=== PATIENT | female | born 1970 | race Caucasian/White ===

== ENCOUNTER 2017-02-20 14:32 | Observation (INO) | payer SELFPAY ==
[2017-02-20] VITALS (8 sets, daily range): BP systolic 100–117; BP diastolic 56–74; PULSE 57–77; RESP 16–20; TEMP 97.8–99.5; O2SAT 95–99
[~2017-02-20] VITALS: Ht 160 cm; Wt 75.0 kg
[~2017-02-20 14:32] MED LIST: ACID75TA6 PO; LISI-363 PO; MELA1TAB PO; PROT40TA PO; ZOFR4TAB3 SL; ZOVI200C24 PO
[2017-02-20] MEDS ORDERED: SODIUM CHLORIDE 0.9% FLUSH 10 ML FLUSH IVF PRN (15:00)
[2017-02-20] MEDS ORDERED: ONDANSETRON HCL 4 MG/2 ML VIAL IVP ONE (15:00)
[2017-02-20] MEDS ORDERED: SODIUM CHLOR 0.9% 1000 ML INJ 1,000 ML IV ONE (15:00)
[2017-02-20] MEDS ORDERED: ACYC400T PO (15:02)
[2017-02-20] MEDS ORDERED: VIST50CA PO (15:02)
[2017-02-20] MEDS ORDERED: OMEP20TA PO (15:02)
[2017-02-20] MEDS ORDERED: HYDR12.57 PO (15:02)
[2017-02-20] MEDS ORDERED: ATEN25TA PO (15:02)
[2017-02-20] MEDS ORDERED: TRAZ50TA12 PO (15:02)
[2017-02-20] MEDS ORDERED: ABIL15TA2 PO (15:02)
[2017-02-20] MEDS ORDERED: LAMO100 PO (15:02)
--- NOTE | 2017-02-20 15:09 | PD ---
HPI Chief Complaint: Syncope/Near-Syncope Time Seen by Provider: 14:52 Travel History International Travel<30 days: No Contact w/Intl Traveler<30days: No Traveled to known affect area: No History of Present Illness HPI Patient is 47 her old female with history of htn, bipolar disorder, PTSD, presents to ER after she had a syncopal episode. Patient went to get a parking pass today and reports that the next thing she remembers is waking up on the floor. Reports that bystanders had told her that she had "passed out." Patient reports that she has been feeling lightheaded and dizzy. Reports that prior to her syncopal episode, she felt diaphoretic, hot, nauseous with no vomiting. Patient with only complaint of dizzyness at this time. Denies chest pain/sob. Patient reports that she currently is not on any anticoagulants. Denies history of syncope in the past. Denies any fevers or chills. PFSH Past Medical History Asthma: Yes Bipolar Disorder: Yes Gastrointestinal Disorders: Yes (CHRONIC OVERGROWTH OF SMALL INTESTINE BACTERIA ) GERD: No ("REFLUX") Hypertension: Yes Past Surgical History Ear Surgery: Yes (EUSTATION TUBES) Genitourinary Surgery: Yes (MULTIPLE ENDOSCOPIES AND COLONOSCOPIES) Tonsillectomy: Yes (WITH ADNIODS) Social History Alcohol Use: Yes (OCCASIONALLY) Tobacco Use: No Substance Use: No Allergies-Medications (Allergen,Severity, Reaction): Coded Allergies: clarithromycin (Verified Allergy, Severe, hives, 02/20/17) hydrocodone (Verified Allergy, Severe, hives, 02/20/17) oxycodone (Verified Allergy, Severe, hives, 02/20/17) Reported Meds & Prescriptions Reported Meds & Active Scripts Active Reported Trazodone (Trazodone HCl) 50 Mg Tab 50 Mg PO HS Acyclovir 400 Mg Tab 200 Mg PO BID Atenolol 25 Mg Tab 25 Mg PO DAILY Hydrochlorothiazide 12.5 Mg Cap 12.5 Mg PO DAILY Omeprazole 20 Mg Tab 20 Mg PO DAILY Lamictal (Lamotrigine) 100 Mg Tab 100 Mg PO BID Vistaril (Hydroxyzine Pamoate) 50 Mg Cap 50 Mg PO TID Abilify (Aripiprazole) 15 Mg Tab 15 Mg PO DAILY Review of Systems General / Constitutional: No: Fever Eyes: No: Visual changes HENT: Positive: Lightheadedness, No: Headaches Cardiovascular: Positive: Diaphoresis, No: Chest Pain or Discomfort Respiratory: No: Shortness of Breath Gastrointestinal: Positive: Nausea, No: Vomiting, Abdominal Pain Genitourinary: No: Dysuria Musculoskeletal: No: Pain Skin: No Rash Neurologic: Positive: Dizziness, Syncope, No: Weakness Psychiatric: No: Depression Endocrine: No: Polydipsia Hematologic/Lymphatic: No: Easy Bruising Physical Exam Narrative GENERAL: Mild distress SKIN: Focused skin assessment warm/dry. HEAD: Atraumatic. Normocephalic. EYES: Pupils equal and round. No scleral icterus. No injection or drainage. ENT: No nasal bleeding or discharge. Mucous membranes pink and dry. NECK: Trachea midline. No JVD. CARDIOVASCULAR: Regular rate and rhythm. No murmur appreciated. RESPIRATORY: No accessory muscle use. Clear to auscultation. Breath sounds equal bilaterally. GASTROINTESTINAL: Abdomen soft, non-tender, nondistended. Hepatic and splenic margins not palpable. MUSCULOSKELETAL: No obvious deformities. No clubbing. No cyanosis. No edema. NEUROLOGICAL: Awake and alert. No obvious cranial nerve deficits. Motor grossly within normal limits. Normal speech. CN 2-12 grossly intact with no neurovascular compromise PSYCHIATRIC: Appropriate mood and affect; insight and judgment normal. Data Data Last Documented VS Vital Signs Date Time Temp Pulse Resp B/P (MAP) Pulse Ox O2 Delivery O2 Flow Rate FiO2 02/20/17 16:47 97.9 64 16 104/67 (79) 99 Room Air Orders Orders Electrocardiogram (02/20/17 15:00) Ed Urine Pregnancytest Poc (02/20/17 15:00) Complete Blood Count With Diff (02/20/17 15:00) Comprehensive Metabolic Panel (02/20/17 15:00) Magnesium (Mg) (02/20/17 15:00) B-Type Natriuretic Peptide (02/20/17 15:00) Ckmb (Isoenzyme) Profile (02/20/17 15:00) Troponin I (02/20/17 15:00) Act Partial Throm Time (Ptt) (02/20/17 15:00) Prothrombin Time / Inr (Pt) (02/20/17 15:00) Urinalysis - C+S If Indicated (02/20/17 15:00) Chest, Single Ap (02/20/17 15:00) Ct Brain W/O Iv Contrast(Rout) (02/20/17 15:00) Blood Glucose (02/20/17 15:00) Ecg Monitoring (02/20/17 15:00) Iv Access Insert/Monitor (02/20/17 15:00) Oximetry (02/20/17 15:00) Ondansetron Inj (Zofran Inj) (02/20/17 15:00) Sodium Chloride 0.9% Flush (Ns Flush) (02/20/17 15:00) Sodium Chlor 0.9% 1000 Ml Inj (Ns 1000 M (02/20/17 15:00) Orthostatic Vital Signs (02/20/17 15:09) Drug Screen, Random Urine (02/20/17 15:09) Potassium Chloride (Kcl) (02/20/17 16:45) Aspirin (Aspirin) (02/20/17 16:45) Admit Order (Ed Use Only) (02/20/17 16:49) Labs Laboratory Tests Test 02/20/17 15:00 White Blood Count 9.0 TH/MM3 Red Blood Count 4.06 MIL/MM3 Hemoglobin 12.4 GM/DL Hematocrit 36.5 % Mean Corpuscular Volume 89.8 FL Mean Corpuscular Hemoglobin 30.6 PG Mean Corpuscular Hemoglobin Concent 34.1 % Red Cell Distribution Width 14.0 % Platelet Count 288 TH/MM3 Mean Platelet Volume 7.4 FL Neutrophils (%) (Auto) 76.9 % Lymphocytes (%) (Auto) 17.4 % Monocytes (%) (Auto) 4.5 % Eosinophils (%) (Auto) 0.8 % Basophils (%) (Auto) 0.4 % Neutrophils # (Auto) 6.9 TH/MM3 Lymphocytes # (Auto) 1.6 TH/MM3 Monocytes # (Auto) 0.4 TH/MM3 Eosinophils # (Auto) 0.1 TH/MM3 Basophils # (Auto) 0.0 TH/MM3 CBC Comment DIFF FINAL Differential Comment Prothrombin Time 10.0 SEC Prothromb Time International Ratio 0.9 RATIO Activated Partial Thromboplast Time 23.3 SEC Urine Color YELLOW Urine Turbidity CLEAR Urine pH 6.5 Urine Specific [place] 1.024 Urine Protein NEG mg/dL Urine Glucose (UA) NEG mg/dL Urine Ketones NEG mg/dL Urine Occult Blood TRACE Urine Nitrite NEG Urine Bilirubin NEG Urine Urobilinogen 2.0 MG/DL Urine Leukocyte Esterase NEG Urine RBC 4 /hpf Urine WBC 1 /hpf Urine Squamous Epithelial Cells 5 /hpf Urine Bacteria RARE /hpf Urine Mucus FEW /lpf Microscopic Urinalysis Comment CULT NOT INDICATED Blood Urea Nitrogen 21 MG/DL Creatinine 0.96 MG/DL Random Glucose 98 MG/DL Total Protein 6.4 GM/DL Albumin 3.2 GM/DL Calcium Level 8.4 MG/DL Magnesium Level 2.0 MG/DL Alkaline Phosphatase 52 U/L Aspartate Amino Transf (AST/SGOT) 9 U/L Alanine Aminotransferase (ALT/SGPT) 15 U/L Total Bilirubin 0.2 MG/DL Sodium Level 136 MEQ/L Potassium Level 3.2 MEQ/L Chloride Level 100 MEQ/L Carbon Dioxide Level 30.4 MEQ/L Anion Gap 6 MEQ/L Estimat Glomerular Filtration Rate 63 ML/MIN Total Creatine Kinase 79 U/L Troponin I LESS THAN 0.02 NG/ML MDM Medical Decision Making Medical Screen Exam Complete: Yes Emergency Medical Condition: Yes Medical Record Reviewed: Yes Interpretation(s) EKG at 1521: NSR at 65bpm, qt/qtc: 418/430, no acute st or t wave changes Vital Signs Date Time Temp Pulse Resp B/P (MAP) Pulse Ox O2 Delivery O2 Flow Rate FiO2 02/20/17 14:57 81 18 98 Room Air 02/20/17 14:52 98.1 77 16 110/69 (83) 96 Differential Diagnosis acs, arrhythmia, electrolyte abnormality, ich, orthostatic hypotension, vbi Narrative Course 47-year-old female who presents to emergency room for evaluation of syncopal episode today. Syncopal episode occurred while she was trying to get a parking pass at her apartment complex today. Patient reports that prior to her syncopal episode, she felt lightheaded dizzy, diaphoretic and nauseous. Patient at this time only complains of dizziness. Patient was placed on a cart monitor upon arrival to emergency room. Bedside BS ordered. EKG ordered. CT head, cbc, bmp, ce ordered. Plan to administer IVF as patient does appear dehydrated. Vital Signs Date Time Temp Pulse Resp B/P (MAP) Pulse Ox O2 Delivery O2 Flow Rate FiO2 02/20/17 15:13 78 17 117/73 (88) 80 17 116/71 (86) 76 17 110/74 (86) 02/20/17 15:04 17 98 Room Air 02/20/17 14:57 81 18 98 Room Air 02/20/17 14:52 98.1 77 16 110/69 (83) 96 Laboratory Tests Test 02/20/17 15:00 White Blood Count 9.0 TH/MM3 (4.0-11.0) Red Blood Count 4.06 MIL/MM3 (4.00-5.30) Hemoglobin 12.4 GM/DL (11.6-15.3) Hematocrit 36.5 % (35.0-46.0) Mean Corpuscular Volume 89.8 FL (80.0-100.0) Mean Corpuscular Hemoglobin 30.6 PG (27.0-34.0) Mean Corpuscular Hemoglobin Concent 34.1 % (32.0-36.0) Red Cell Distribution Width 14.0 % (11.6-17.2) Platelet Count 288 TH/MM3 (150-450) Mean Platelet Volume 7.4 FL (7.0-11.0) Neutrophils (%) (Auto) 76.9 % (16.0-70.0) Lymphocytes (%) (Auto) 17.4 % (9.0-44.0) Monocytes (%) (Auto) 4.5 % (0.0-8.0) Eosinophils (%) (Auto) 0.8 % (0.0-4.0) Basophils (%) (Auto) 0.4 % (0.0-2.0) Neutrophils # (Auto) 6.9 TH/MM3 (1.8-7.7) Lymphocytes # (Auto) 1.6 TH/MM3 (1.0-4.8) Monocytes # (Auto) 0.4 TH/MM3 (0-0.9) Eosinophils # (Auto) 0.1 TH/MM3 (0-0.4) Basophils # (Auto) 0.0 TH/MM3 (0-0.2) CBC Comment DIFF FINAL Differential Comment Prothrombin Time 10.0 SEC (9.8-11.6) Prothromb Time International Ratio 0.9 RATIO Activated Partial Thromboplast Time 23.3 SEC (24.3-30.1) Urine Color YELLOW (YELLW/STRAW) Urine Turbidity CLEAR (CLEAR) Urine pH 6.5 (5.0-8.5) Urine Specific [place] 1.024 (1.002-1.035) Urine Protein NEG mg/dL (NEG-TRACE) Urine Glucose (UA) NEG mg/dL (NEG) Urine Ketones NEG mg/dL (NEG) Urine Occult Blood TRACE (NEG) Urine Nitrite NEG (NEG) Urine Bilirubin NEG (NEG) Urine Urobilinogen 2.0 MG/DL (LESS THAN Urine Leukocyte Esterase NEG (NEG) Urine RBC 4 /hpf (0-3) Urine WBC 1 /hpf (0-5) Urine Squamous Epithelial Cells 5 /hpf (0-5) Urine Bacteria RARE /hpf (NONE) Urine Mucus FEW /lpf (OCC) Microscopic Urinalysis Comment CULT NOT INDICATED Blood Urea Nitrogen 21 MG/DL (7-18) Creatinine 0.96 MG/DL (0.50-1.00) Random Glucose 98 MG/DL (74-106) Total Protein 6.4 GM/DL (6.4-8.2) Albumin 3.2 GM/DL (3.4-5.0) Calcium Level 8.4 MG/DL (8.5-10.1) Magnesium Level 2.0 MG/DL (1.5-2.5) Alkaline Phosphatase 52 U/L (45-117) Aspartate Amino Transf (AST/SGOT) 9 U/L (15-37) Alanine Aminotransferase (ALT/SGPT) 15 U/L (10-53) Total Bilirubin 0.2 MG/DL (0.2-1.0) Sodium Level 136 MEQ/L (136-145) Potassium Level 3.2 MEQ/L (3.5-5.1) Chloride Level 100 MEQ/L (98-107) Carbon Dioxide Level 30.4 MEQ/L (21.0-32.0) Anion Gap 6 MEQ/L (5-15) Estimat Glomerular Filtration Rate 63 ML/MIN (>89) Total Creatine Kinase 79 U/L (26-192) Troponin I LESS THAN 0.02 NG/ML Last Impressions Head CT 02/20/17 1500 Signed Impressions: Service Date/Time: February 15:52 - CONCLUSION: No acute intracranial abnormality is identified. Lenny Wolff MD Chest X-Ray 02/20/17 1500 Signed Impressions: Service Date/Time: February 15:26 - CONCLUSION: No acute cardiopulmonary abnormality is identified. Lenny Wolff MD Patient re-evaluated, patient feeling better, reviewed all labs and studies with patient in detail. Plan to obs in the hospital for syncope workup case reviewed with dr. licona who accepts pt to service Diagnosis Primary Impression: Syncope and collapse Additional Impression: Hypokalemia Admitting Information Admitting Physician Requests: Observation Ligia Mendiola DO Feb 20, 2017 15:09
[2017-02-20 15:38] LABS: AUTOMATED NEUTROPHIL # 6.9 TH/MM3 (1.8-7.7); BASOPHIL % 0.4 % (0.0-2.0); EOSINOPHIL # 0.1 TH/MM3 (0-0.4); EOSINOPHIL % 0.8 % (0.0-4.0); HEMATOCRIT 36.5 % (35.0-46.0); HEMO FLAGS DIFF FINAL; LYMPH % 17.4 % (9.0-44.0); LYMPHOCYTE # 1.6 TH/MM3 (1.0-4.8); MEAN CELL VOLUME 89.8 FL (80.0-100.0); MEAN CORPUSCULAR HEMOGLOBIN 30.6 PG (27.0-34.0); MEAN CORPUSCULAR HGB CONC 34.1 % (32.0-36.0); MONO % 4.5 % (0.0-8.0); NEUT % 76.9 % (16.0-70.0); PLATELET COUNT 288 TH/MM3 (150-450); RED BLOOD COUNT 4.06 MIL/MM3 (4.00-5.30)
--- NOTE | 2017-02-20 15:45 | RADRPT ---
EXAM DATE/TIME: 02/20/2017 15:26 [facility] COMPARISON: No previous studies available for comparison. INDICATIONS : Dizziness, shortness of breath, light headed, nausea, and blacked out earlier today. MEDICAL HISTORY : None. SURGICAL HISTORY : None. ENCOUNTER: Initial ACUITY: 1 day PAIN SCORE: 0/10 LOCATION: Bilateral chest FINDINGS: Portable AP view of the chest demonstrates a normal-sized cardiac silhouette. No effusion, consolidat ion, or pneumothorax is visualized. The bones and soft tissues demonstrate no acute abnormality. CONCLUSION: No acute cardiopulmonary abnormality is identified. Lenny Wolff MD on February 20, 2017 at 15:43 Board Certified Radiologist. This report was verified electronically.
[2017-02-20 15:47] LABS: BACTERIA, URINE RARE /hpf; BLOOD, URINE TRACE (NEG); COMMENT (UR) CULT NOT INDICATED; CULTURE IF INDICATED CULT NOT INDICATED; GLUCOSE,URINE NEG (NEG); KETONE, URINE NEG (NEG); MUCUS URINE FEW /lpf (OCC); NITRITE,URINE NEG (NEG); PH, URINE 6.5 (5.0-8.5); SQUAMOUS EPITHELIAL CELL URINE 5 /hpf (0-5); URINE COLOR YELLOW (YELLW/STRAW)
[2017-02-20 15:52] LABS: APTT (PATIENT) 23.3 SEC (24.3-30.1); INTERNATIONAL NORMALIZED RATIO 0.9 RATIO
--- NOTE | 2017-02-20 16:04 | RADRPT ---
EXAM DATE/TIME: 02/20/2017 15:52 [facility] COMPARISON: No previous studies available for comparison. INDICATIONS : Head pain due to fall, syncope. RADIATION DOSE: 32.02 CTDIvol (mGy) MEDICAL HISTORY : Hypertension. Asthma, Bipolar. SURGICAL HISTORY : None. ENCOUNTER: Initial ACUITY: 1 day PAIN SCALE: 2/10 LOCATION: Bilateral cranial TECHNIQUE: Multiple contiguous axial images were obtained of the head. Using automated exposure control and adj ustment of the mA and/or kV according to patient size, radiation dose was kept as low as reasonably a chievable to obtain optimal diagnostic quality images. DICOM format image data is available electro nically for review and comparison. FINDINGS: CEREBRUM: The ventricles are normal. No evidence of midline shift, mass lesion, hemorrhage or acute infarction . No extra-axial fluid collections are seen. POSTERIOR FOSSA: The cerebellum and brainstem are intact. The 4th ventricle is midline. The cerebellopontine angle i s unremarkable. EXTRACRANIAL: There is minimal mucoperiosteal thickening in the sphenoid sinus. SKULL: The calvaria is intact. No evidence of skull fracture. CONCLUSION: No acute intracranial abnormality is identified. Lenny Wolff MD on February 20, 2017 at 16:01 Board Certified Radiologist. This report was verified electronically.
[2017-02-20 16:06] LABS: ALT (GPT) 15 U/L (10-53); ANION GAP 6 MEQ/L (5-15); AST (GOT) 9 U/L (15-37); BICARBONATE 30.4 MEQ/L (21.0-32.0); BLOOD UREA NITROGEN 21 MG/DL (7-18); CHLORIDE 100 MEQ/L (98-107); GLOMERULAR FILTRATION RATE 63 ML/MIN (>89); POTASSIUM 3.2 MEQ/L (3.5-5.1); SODIUM (NA) 136 MEQ/L (136-145)
[2017-02-20 16:11] LABS: ALKALINE PHOSPHATASE 52 U/L (45-117); TOTAL BILIRUBIN ADULT 0.2 MG/DL (0.2-1.0)
[2017-02-20 16:27] LABS: CREATINE KINASE 79 U/L (26-192)
[2017-02-20] MEDS ORDERED: POTASSIUM CHLORIDE 10 MEQ CONTROLLED RELEASE TAB PO ONE (16:45)
[2017-02-20] MEDS ORDERED: ASPIRIN 325 MG TAB PO ONE (16:45)
[2017-02-20] MEDS ORDERED: NALOXONE HCL 0.4 MG/ML AMP IV PUSH PRN (17:00)
[2017-02-20] MEDS ORDERED: MAGNESIUM HYDROXIDE SUSP 30 ML CUP PO PRN (17:00)
[2017-02-20] MEDS ORDERED: ACETAMINOPHEN 325 MG TAB PO PRN ×2 (17:00)
[2017-02-20] MEDS ORDERED: SODIUM CHLORIDE 0.9% FLUSH 10 ML FLUSH IV FLUSH PRN (17:00)
[2017-02-20] MEDS ORDERED: ACETAMINOPHEN/HYDROcodone 325 MG/5 MG TAB PO PRN (17:00)
[2017-02-20] MEDS ORDERED: ONDANSETRON HCL 4 MG/2 ML VIAL IVP PRN (17:00)
--- NOTE | 2017-02-20 17:22 | HHI.HP ---
HPI [facility] Primary Care Physician No Primary Care Physician Admission Diagnosis [place]pe Diagnoses: Chief Complaint: syncope Travel History International Travel<30 Days: No Contact w/Intl Traveler <30 Da: No Traveled to Known Affected Are: No History of Present Illness Written by Neris Erazo, acting as scribe for Dr. Lazo on 02/20/17 at 17:22. Patient is pleasant 47 her old female with history of HTN, bipolar disorder, PTSD, asthma and herpes simplex 1 & 2 who presents to ER after she had a syncopal episode. Patient went to get a parking pass today and reports that the next thing she remembers is waking up on the floor. Prior to the syncopal episode patient recalls feeling hot, diaphoretic, hot, nauseous with no vomiting. Reports that bystanders had told her that she had "passed out." Patient lost consciousness for an unknown period of time, Patient is unaware if she hit her head or not. Patient denies headache or visual changes. There was no loss of bowel or bladder control and tongue biting. Patient reports that she has been feeling lightheaded and dizzy since starting Abilify 3 days ago. Patient was started on Vistoril about 2 weeks ago and then started Abilify 3 days ago in addition to her regular Trazodone and Lamictal. Patient reports she is feeling much better at this time. She is no longer dizzy or lightheaded. Patient denies chest pain, SOB, diarrhea constipation fevers or chills. Review of Systems Except as stated in HPI: all other systems reviewed are Neg Past Family Social History Past Medical History HTN, bipolar disorder, PTSD, asthma, herpes simplex type I and 2 Past Surgical History Eustachian tubes placed, EGD and colonoscopies, tonsils and adenoids removed, LEEP procedure Reported Medications Trazodone (Trazodone HCl) 50 Mg Tab 50 Mg PO HS Acyclovir 400 Mg Tab 200 Mg PO BID Atenolol 25 Mg Tab 25 Mg PO DAILY Hydrochlorothiazide 12.5 Mg Cap 12.5 Mg PO DAILY Omeprazole 20 Mg Tab 20 Mg PO DAILY Lamictal (Lamotrigine) 100 Mg Tab 100 Mg PO BID Vistaril (Hydroxyzine Pamoate) 50 Mg Cap 50 Mg PO TID Abilify (Aripiprazole) 15 Mg Tab 15 Mg PO DAILY Allergies: Coded Allergies: clarithromycin (Verified Allergy, Severe, hives, 02/20/17) hydrocodone (Verified Allergy, Severe, hives, 02/20/17) oxycodone (Verified Allergy, Severe, hives, 02/20/17) Active Ordered Medications Current Medications Medications (Trade) Dose Ordered Sig/Karla Route Start Time Stop Time Status Last Admin (NS Flush) 2 ml UNSCH PRN IVF 02/20/17 15:00 02/20/17 15:12 (Zovirax) 200 mg BID PO 02/20/17 21:00 UNV (Abilify) 15 mg DAILY PO 02/21/17 09:00 UNV (Tenormin) 25 mg DAILY PO 02/21/17 09:00 UNV (Microzide) 12.5 mg DAILY PO 02/21/17 09:00 UNV (Vistaril) 50 mg TID PO 02/20/17 18:00 UNV (LaMICtal) 100 mg BID PO 02/20/17 21:00 UNV (Desyrel) 50 mg HS PO 02/20/17 21:00 UNV Non-Formulary Medication 20 mg DAILY PO 02/21/17 09:00 UNV (NS Flush) 2 ml UNSCH PRN IV FLUSH 02/20/17 17:00 UNV (NS Flush) 2 ml BID IV FLUSH 02/20/17 21:00 UNV (Tylenol) 650 mg Q4H PRN PO 02/20/17 17:00 UNV (Zofran Inj) 4 mg Q6H PRN IVP 02/20/17 17:00 UNV (Tylenol) 650 mg Q6H PRN PO 02/20/17 17:00 UNV (Devers 5-325 Mg) 1 tab Q4H PRN PO 02/20/17 17:00 UNV (Narcan Inj) 0.4 mg UNSCH PRN IV PUSH 02/20/17 17:00 UNV (Milk Of Magnesia Liq) 30 ml Q12H PRN PO 02/20/17 17:00 UNV (Ativan Inj) 4 mg Q4H PRN IV PUSH 02/20/17 17:45 UNV Family History Mother 60 secondary to RI Father at 62 secondary to squamous cell carcinoma Social History Alcohol Use: OCCASIONALLY Tobacco Use: 1 PPD for 30 year, now has cut down to 1/2 PPD Substance Use: Denies Physical Exam Vital Signs Vital Signs Date Time Temp Pulse Resp B/P (MAP) Pulse Ox O2 Delivery O2 Flow Rate FiO2 02/20/17 16:47 97.9 64 16 104/67 (79) 99 Room Air 02/20/17 15:13 78 17 117/73 (88) 80 17 116/71 (86) 76 17 110/74 (86) 02/20/17 15:04 17 98 Room Air 02/20/17 14:57 81 18 98 Room Air 02/20/17 14:52 98.1 77 16 110/69 (83) 96 Physical Exam GENERAL: This is a 47 old female patient who appears older than stated age in no acute distress at this time SKIN: No rashes, ecchymoses or lesions. Cool and dry. Scattered tattoos HEAD: Atraumatic. Normocephalic. No temporal or scalp tenderness. EYES: Pupils equal round and reactive. Extraocular motions intact. No scleral icterus. No injection or drainage. CARDIOVASCULAR: Regular rate and rhythm RESPIRATORY: Clear to auscultation. Breath sounds equal bilaterally. GASTROINTESTINAL: Abdomen soft, non-tender, nondistended. No guarding. MUSCULOSKELETAL: Extremities without clubbing, cyanosis, or edema. No joint tenderness, effusion, or edema noted. No calf tenderness. Negative Homans sign bilaterally. NEUROLOGICAL: Awake and alert. No focal deficits appreciated. Motor and sensory grossly within normal limits. Five out of 5 muscle strength in all muscle groups. Normal speech. Laboratory Laboratory Tests Test 02/20/17 15:00 White Blood Count 9.0 Red Blood Count 4.06 Hemoglobin 12.4 Hematocrit 36.5 Mean Corpuscular Volume 89.8 Mean Corpuscular Hemoglobin 30.6 Mean Corpuscular Hemoglobin Concent 34.1 Red Cell Distribution Width 14.0 Platelet Count 288 Mean Platelet Volume 7.4 Neutrophils (%) (Auto) 76.9 Lymphocytes (%) (Auto) 17.4 Monocytes (%) (Auto) 4.5 Eosinophils (%) (Auto) 0.8 Basophils (%) (Auto) 0.4 Neutrophils # (Auto) 6.9 Lymphocytes # (Auto) 1.6 Monocytes # (Auto) 0.4 Eosinophils # (Auto) 0.1 Basophils # (Auto) 0.0 CBC Comment DIFF FINAL Differential Comment Prothrombin Time 10.0 Prothromb Time International Ratio 0.9 Activated Partial Thromboplast Time 23.3 Urine Color YELLOW Urine Turbidity CLEAR Urine pH 6.5 Urine Specific [place] 1.024 Urine Protein NEG Urine Glucose (UA) NEG Urine Ketones NEG Urine Occult Blood TRACE Urine Nitrite NEG Urine Bilirubin NEG Urine Urobilinogen 2.0 Urine Leukocyte Esterase NEG Urine RBC 4 Urine WBC 1 Urine Squamous Epithelial Cells 5 Urine Bacteria RARE Urine Mucus FEW Microscopic Urinalysis Comment CULT NOT INDICATED Blood Urea Nitrogen 21 Creatinine 0.96 Random Glucose 98 Total Protein 6.4 Albumin 3.2 Calcium Level 8.4 Magnesium Level 2.0 Alkaline Phosphatase 52 Aspartate Amino Transf (AST/SGOT) 9 Alanine Aminotransferase (ALT/SGPT) 15 Total Bilirubin 0.2 Sodium Level 136 Potassium Level 3.2 Chloride Level 100 Carbon Dioxide Level 30.4 Anion Gap 6 Estimat Glomerular Filtration Rate 63 Total Creatine Kinase 79 Troponin I LESS THAN 0.02 Result Diagram: 02/20/17 1500 02/20/17 1500 Imaging Last Impressions Head CT 02/20/17 1500 Signed Impressions: Service Date/Time: February 15:52 - CONCLUSION: No acute intracranial abnormality is identified. Lenny Wolff MD Chest X-Ray 02/20/17 1500 Signed Impressions: Service Date/Time: February 15:26 - CONCLUSION: No acute cardiopulmonary abnormality is identified. Lenny Wolff MD Caprini VTE Risk Assessment Caprini VTE Risk Assessment: No/Low Risk (score <= 1) Caprini Risk Assessment Model Point Value = 1 Point Value = 2 Point Value = 3 Point Value = 5 Age 41-60 Minor surgery BMI > 25 kg/m2 Swollen legs Varicose veins or History of unexplained or recurrent spontaneous Oral contraceptives or hormone replacement Sepsis (< 1 month) Serious lung disease, including pneumonia (< 1 month) Abnormal pulmonary function Acute myocardial infarction Congestive heart failure (< 1 month) History of inflammatory bowel disease Medical patient at bed rest Age 61-74 Arthroscopic surgery Major open surgery (> 45 min) Laparoscopic surgery (> 45 min) Malignancy Confined to bed (> 72 hours) Immobilizing plaster cast Central venous access Age >= 75 History of VTE Family history of VTE Factor V Leiden Prothrombin [id number] Lupus anticoagulant Anticardiolipin antibodies Elevated serum homocysteine Heparin-induced thrombocytopenia Other congenital or acquired thrombophilia Stroke (< 1 month) Elective arthroplasty Hip, pelvis, or leg fracture Acute spinal cord injury (< 1 month) Prophylaxis Regimen Total Risk Factor Score Risk Level Prophylaxis Regimen 0-1 Low Early ambulation 2 Moderate Order ONE of the following: *Sequential Compression Device (SCD) *Heparin 5000 units SQ BID 3-4 Higher Order ONE of the following medications: *Heparin 5000 units SQ TID *Enoxaparin/Lovenox 40 mg SQ daily (WT < 150 kg, CrCl > 30 mL/min) *Enoxaparin/Lovenox 30 mg SQ daily (WT < 150 kg, CrCl > 10-29 mL/min) *Enoxaparin/Lovenox 30 mg SQ BID (WT < 150 kg, CrCl > 30 mL/min) AND/OR *Sequential Compression Device (SCD) 5 or more Highest Order ONE of the following medications: *Heparin 5000 units SQ TID (Preferred with Epidurals) *Enoxaparin/Lovenox 40 mg SQ daily (WT < 150 kg, CrCl > 30 mL/min) *Enoxaparin/Lovenox 30 mg SQ daily (WT < 150 kg, CrCl > 10-29 mL/min) *Enoxaparin/Lovenox 30 mg SQ BID (WT < 150 kg, CrCl > 30 mL/min) AND *Sequential Compression Device (SCD) Assessment and Plan Problem List: (1) Syncope and collapse ICD Code: R55 - Syncope and collapse Status: Acute (2) Hypokalemia ICD Code: E87.6 - Hypokalemia Status: Acute (3) HTN (hypertension) ICD Code: I10 - Essential (primary) hypertension (4) PTSD (post-traumatic stress disorder) ICD Code: F43.10 - Post-traumatic stress disorder, unspecified (5) Bipolar disorder, unspecified ICD Code: F31.9 - Bipolar disorder, unspecified (6) Tobacco abuse ICD Code: Z72.0 - Tobacco use Assessment and Plan Syncopal episode- likely secondary to new medication and dehydration with poor by mouth intake CT of the head reviewed by me reveals no acute intracranial abnormality Orthostatic vital signs reviewed not consistent with orthostatic hypotension Initiate IV fluids NS with KCL Serial neuro checks PT consult Check EEG Hypokalemia replaced Hypertension Continue home medication continue monitor trend Bipolar/PTSD Continue Lamictal and trazodone will hold Vistaril and Abilify as these are new medications Tobacco abuse Patient counseled and encouraged to abstain Nicotine patch Herpes simplex 1&2 will continue patient's home acyclovir GERD continue home omeprazole DVT prophylaxis with DEIDRE cartwright and SCDs This note was transcribed by kai Erazo. I, Dr. Gurdeep Lazo personally performed the history, physical exam, and medical decision making; and confirmed the accuracy of the information in the transcribed note. Authenticated by Dr. Gurdeep Lazo on 02/20/17 at 17:22. Code Status Full code Discussed Condition With Patient, ED physician Neris Erazo Feb 20, 2017 17:22 Gurdeep Lazo MD Feb 20, 2017 17:25
[2017-02-20] MEDS ORDERED: LORazepam 2 MG/ML VIAL IV PUSH PRN (17:45)
[2017-02-20] MEDS: NICOTINE 14 MG/24 HR PATCH T-DERMAL SCH (18:30)
[2017-02-20] MEDS ORDERED: NS + KCL 20 MEQ INJ 1,000 ML IV SCH (18:30)
[2017-02-20] MEDS: SODIUM CHLORIDE 0.9% FLUSH 10 ML FLUSH IV FLUSH SCH (21:00)
[2017-02-20] MEDS ORDERED: traZODone HCL 50 MG TAB PO SCH (21:00)
[2017-02-20] MEDS ORDERED: REMOVE OLD PATCH T-DERMAL SCH (21:00)
[2017-02-20] MEDS: lamoTRIgine 100 MG TAB PO SCH (21:03)
[2017-02-20] MEDS: ACYCLOVIR 200 MG CAP PO SCH (21:03)
[2017-02-20] MEDS ORDERED: traZODone HCL 50 MG TAB PO ONE (21:45)
[2017-02-20] MEDS ORDERED: PILL SPLITTER OTHER PRN (21:45)
[2017-02-21] VITALS (9 sets, daily range): BP systolic 89–139; BP diastolic 50–85; PULSE 50–69; RESP 16–20; TEMP 97.8–98.6; O2SAT 95–98
[2017-02-21 08:06] LABS: AUTOMATED NEUTROPHIL # 2.7 TH/MM3 (1.8-7.7); BASOPHIL % 0.5 % (0.0-2.0); EOSINOPHIL # 0.2 TH/MM3 (0-0.4); EOSINOPHIL % 2.9 % (0.0-4.0); HEMATOCRIT 35.4 % (35.0-46.0); HEMO FLAGS DIFF FINAL; LYMPH % 53.5 % (9.0-44.0); LYMPHOCYTE # 3.8 TH/MM3 (1.0-4.8); MEAN CELL VOLUME 90.6 FL (80.0-100.0); MEAN CORPUSCULAR HGB CONC 34.2 % (32.0-36.0); NEUT % 37.1 % (16.0-70.0); PLATELET COUNT 269 TH/MM3 (150-450); WHITE BLOOD COUNT 7.2 TH/MM3 (4.0-11.0)
[2017-02-21 08:16] LABS: ANION GAP 5 MEQ/L (5-15); AST (GOT) 7 U/L (15-37); BICARBONATE 29.7 MEQ/L (21.0-32.0); BLOOD UREA NITROGEN 18 MG/DL (7-18); CHLORIDE 106 MEQ/L (98-107); GLOMERULAR FILTRATION RATE 71 ML/MIN (>89); POTASSIUM 3.4 MEQ/L (3.5-5.1); SODIUM (NA) 141 MEQ/L (136-145)
[2017-02-21 08:21] LABS: ALKALINE PHOSPHATASE 47 U/L (45-117); ALT (GPT) 13 U/L (10-53); TOTAL BILIRUBIN ADULT 0.2 MG/DL (0.2-1.0)
[2017-02-21] MEDS: REMOVE OLD PATCH T-DERMAL SCH (09:00)
[2017-02-21] MEDS ORDERED: HYDROCHLOROTHIAZIDE 12.5 MG CAP PO SCH (09:00)
[2017-02-21] MEDS ORDERED: ATENOLOL 25 MG TAB PO SCH (09:00)
[2017-02-21] MEDS ORDERED: ARIPiprazole 15 MG TAB PO SCH (09:00)
[2017-02-21] MEDS ORDERED: NON-FORMULARY DRUG (Omeprazole 20 MG) PO SCH (09:00)
--- NOTE | 2017-02-21 09:15 | RADRPT ---
EXAM DATE/TIME: 02/21/2017 08:40 [place] COMPARISON: No previous studies available for comparison. INDICATIONS : Syncope. MEDICAL HISTORY : Hypertension. Asthma. GERD. Bipolar. SURGICAL HISTORY : Tonsillectomy. EGD. Colonoscopy. 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 ENCOUNTER: Initial ACUITY: 1 day PAIN SCORE: 0/10 LOCATION: Bilateral neck PEAK SYSTOLIC VELOCITIES (cm/sec): ICA/CCA RATIO: Right: 1.2 Left: 0.9 ICA: Right: 114 Left: 104 CCA: Right: 98 Left: 115 ECA: Right: 83 Left: 88 VERTEBRAL: Right: 63 antegrade Left: 58 antegrade Elevated flow velocities and ICA/CCA ratios have been found to correlate with increased degrees of vessel stenosis, calculated as percentage of diameter relative to a normal segment of distal ICA/CCA FINDINGS: RIGHT CAROTID: Mild plaquing at the carotid bifurcation. No significant stenosis is visualized. The waveforms are w ithin normal limits. LEFT CAROTID: Mild plaquing at the carotid bifurcation. No significant stenosis is visualized. The waveforms are w ithin normal limits. VERTEBRAL ARTERIES: Antegrade flow is seen in both vertebral arteries. MISCELLANEOUS: None. CONCLUSION: There is mild plaquing at both carotid bifurcations. No focal high grade or hemodynamically significa nt stenosis. Prabhjot Villanueva MD on February 21, 2017 at 9:13 Board Certified Radiologist. This report was verified electronically.
[2017-02-21] MEDS ORDERED: RESP: ALBUTEROL 1.25 MG/3 ML NEB (SCH) NEB ONE (10:30)
[2017-02-21] MEDS: BUDESONIDE-FORMOTEROL 80/4.5 MCG INHALER INH SCH ×2 (10:30→21:06)
--- NOTE | 2017-02-21 10:30 | HHI.PR ---
Subjective Remarks Follow-up for syncope. The patient went to the parking ticket office yesterday and after she got out of her car she was feeling faint, flushed, hot. At the counter, she was told she started sweating and then fell backwards. She didn't lose consciousness. She was told that she was shaking. She is feeling much better today. She worked with PT with no lightheadedness or dizziness. She denies any chest pain, shortness breath, palpitations. She did recently start taking Abilify. She wasn't having any problems with Vistaril which she had been taking for over a week before Abilify. She has asthma. She continues to smoke but is trying to quit. She has an albuterol inhaler at home. Objective Vitals Vital Signs Date Time Temp Pulse Resp B/P (MAP) Pulse Ox O2 Delivery O2 Flow Rate FiO2 02/21/17 09:10 98.6 55 18 103/65 (78) 97 115/68 (84) 116/74 (88) 02/21/17 08:30 97.8 53 18 116/68 (84) 96 02/21/17 05:06 99/66 (77) Automatic Cuff 02/21/17 04:23 98.1 50 16 89/50 (63) 95 02/20/17 23:50 98.2 57 16 105/60 (75) 97 02/20/17 19:31 98.8 69 16 100/56 (71) 97 02/20/17 18:22 99.5 75 20 114/71 (85) 95 02/20/17 18:00 97.8 76 17 109/73 (85) 99 02/20/17 16:47 97.9 64 16 104/67 (79) 99 Room Air 02/20/17 15:13 78 17 117/73 (88) 80 17 116/71 (86) 76 17 110/74 (86) 02/20/17 15:04 17 98 Room Air 02/20/17 14:57 81 18 98 Room Air 02/20/17 14:52 98.1 77 16 110/69 (83) 96 I/O 02/20/17 02/20/17 02/20/17 02/21/17 02/21/17 02/21/17 07:00 15:00 23:00 07:00 15:00 23:00 Intake Total 1000 ml 300 ml Balance 1000 ml 300 ml Intake Oral 300 ml IV Total 1000 ml Result Diagram: 02/21/17 0709 02/21/17 0709 Imaging Last Impressions Carotid Artery Ultrasound 02/21/17 0000 Signed Impressions: Service Date/Time: Tuesday, February 21, 2017 08:40 - CONCLUSION: There is mild plaquing at both carotid bifurcations. No focal high grade or hemodynamically significant stenosis. Prabhjot Villanueva MD Head CT 02/20/17 1500 Signed Impressions: Service Date/Time: February 15:52 - CONCLUSION: No acute intracranial abnormality is identified. Lenny Wolff MD Chest X-Ray 02/20/17 1500 Signed Impressions: Service Date/Time: February 15:26 - CONCLUSION: No acute cardiopulmonary abnormality is identified. Lenny Wolff MD Objective Remarks GENERAL: Well-developed well-nourished. In no acute distress. SKIN: Warm and dry. No lesions noted. HEENT: Normocephalic. Pupils equal and round. Mucous membranes pink and moist. CARDIOVASCULAR: Regular rate and rhythm. No murmur appreciated. RESPIRATORY: No accessory muscle use. Clear to auscultation. Breath sounds equal bilaterally. Occasional wheeze. GASTROINTESTINAL: Abdomen soft, non-tender, nondistended. Bowel sounds x4. MUSCULOSKELETAL: No obvious deformities. No clubbing or cyanosis. No edema. NEUROLOGICAL: Awake and alert. No focal neurological deficits. Moves upper and lower extremities spontaneously. Normal speech. PSYCHIATRIC: Appropriate mood and affect; insight and judgment normal. A/P Problem List: (1) Syncope and collapse ICD Code: R55 - Syncope and collapse Status: Acute (2) Hypokalemia ICD Code: E87.6 - Hypokalemia Status: Acute (3) HTN (hypertension) ICD Code: I10 - Essential (primary) hypertension Status: Chronic (4) PTSD (post-traumatic stress disorder) ICD Code: F43.10 - Post-traumatic stress disorder, unspecified Status: Chronic (5) Bipolar disorder, unspecified ICD Code: F31.9 - Bipolar disorder, unspecified Status: Chronic (6) Tobacco abuse ICD Code: Z72.0 - Tobacco use Status: Chronic Assessment and Plan 47 year old female with history of HTN, bipolar disorder, PTSD, asthma and herpes simplex 1 & 2 who presented after she had a syncopal episode Syncopal episode- differential includes medication effect (Abilify/atenolol), dehydration (HCTZ), or seizure Reviewed: CT head reveals no acute intracranial abnormality. Blood pressure is soft and heart rate is in the 50s. Not orthostatic. Right ultrasound with no significant stenosis. Hypokalemia. EKG with NSR. -Held HCTZ and given IVF -Serial neuro checks -PT consulted -Check EEG Hypokalemia Secondary to HCTZ. Magnesium within normal limits. Given oral replacement. -Potassium remains 3.4, give additional replacement Hypertension BP has been soft. -Held home BP meds and blood pressure is improving -Monitor and adjust regimen as needed Bipolar/PTSD -Continue Lamictal, Vistaril, and trazodone -Recommend discontinuing Abilify as this can contribute to orthostatic hypotension and was only started 3 days ago Asthma Doesn't clinically seem to be in acute exacerbation at this time, but with occasional wheezing on exam. -Albuterol neb 1 -Continue albuterol MDI -Start Symbicort and recommend tobacco cessation and follow-up with PCP Tobacco abuse Counseled on cessation Nicotine patch Herpes simplex 1&2 will continue patient's home acyclovir GERD continue home omeprazole DVT prophylaxis with DEIDRE cartwright and SCDs Discharge Planning The patient is clinically improved. If EEG shows no seizure and patient remains stable, then discharge planning. Problem Qualifiers (1) HTN (hypertension): Qualified Codes: I15.9 - Secondary hypertension, unspecified Vasquez Gamez Feb 21, 2017 10:30
[2017-02-21] MEDS ORDERED: POTASSIUM CHLORIDE 20 MEQ CONTROLLED RELEASE TAB PO ONE (11:00)
[2017-02-21] MEDS: NICOTINE 14 MG/24 HR PATCH T-DERMAL SCH (12:04)
[2017-02-21] MEDS: PANTOPRAZOLE SOD 20 MG DELAYED RELEASE TAB PO SCH (12:04)
[2017-02-21] MEDS: lamoTRIgine 100 MG TAB PO SCH ×2 (12:04→21:08)
[2017-02-21] MEDS: SODIUM CHLORIDE 0.9% FLUSH 10 ML FLUSH IV FLUSH SCH ×2 (12:04→21:08)
[2017-02-21] MEDS: ACYCLOVIR 200 MG CAP PO SCH ×2 (12:04→21:08)
[2017-02-21] MEDS ORDERED: diphenhydrAMINE HCL 50 MG CAP PO PRN (20:00)
[2017-02-21] MEDS ORDERED: traZODone HCL 50 MG TAB PO SCH (21:00)
--- NOTE | 2017-02-21 22:03 | EKG ---
Date Performed: 02/20/2017 Time Performed: 15:21:31 PTAGE: 47 years EKG: Sinus rhythm POSSIBLE LEFT ATRIAL ENLARGEMENT BORDERLINE ECG INTERPRETATION BASED ON A DEFAULT AGE OF 41 YEARS NO PREVIOUS TRACING DOCTOR: Jonathan Rodriguez Interpretating Date/Time 02/21/2017 21:37:44
[2017-02-22 04:37] VITALS: BP 133/84; PULSE 58; RESP 16; TEMP 98.6; O2SAT 98
[2017-02-22 08:39] VITALS: BP 146/70; PULSE 72; RESP 18; TEMP 97.8; O2SAT 96
--- NOTE | 2017-02-22 08:53 | MG ---
cc: DALILA LI MD Lab No: Date: 02/21/2017 Age: 09 1970 Sex: F Race: DATE OF : [address] Lazo MEDICAL HISTORY Syncopal episode, patient felt dizzy, lightheaded, diaphoretic, hot and noxious. History of bipolar Asthma Hypertension Anxiety. Alcohol and caffeine use. MEDICATIONS Acyclovir Lamictal Nicotine DESCRIPTION The Electroencephalogram background activity is 9-10 Hz alpha located posteriorly bilateral and symmetrical with normal posterior anterior gradient. Superimposed by beta activity. Hyperventilation was not done. Photic stimulation did not elicit driving response. During the recording there was mild slowing transitioning to stage I sleep. There was no electrographic seizures or epileptiform discharges. INTERPRETATION This is a normal awake, drowsy and asleep EEG. Absence of electrographic seizures or epileptiform discharges does not exclude diagnosis of epilepsy. Clinical correlation is recommended. Dalila Li MD [facility]/dionne /8:36 AM /8:46 AM DANAY
[2017-02-22] MEDS: REMOVE OLD PATCH T-DERMAL SCH (09:00)
--- NOTE | 2017-02-22 09:03 | HHI.PR ---
Subjective Remarks Follow-up for syncope. The patient is feeling well today. She has no acute complaints. She is having a home setting. She states that her blood pressure have been attributed to stress back when she lived in [place] and she is actually unable to wean off of amlodipine and atenolol recently, still taking HCTZ. Objective Vitals Vital Signs Date Time Temp Pulse Resp B/P (MAP) Pulse Ox O2 Delivery O2 Flow Rate FiO2 02/22/17 08:39 97.8 72 18 146/70 (95) 96 02/22/17 04:37 98.6 58 16 133/84 (100) 98 02/21/17 23:40 98.1 61 16 129/76 (93) 97 02/21/17 19:46 98.0 60 17 139/71 (93) 98 131/79 (96) 137/85 (102) 02/21/17 16:03 98.3 69 20 134/72 (92) 97 Manual Cuff/Palpation 02/21/17 11:36 98.0 60 18 111/58 (75) 96 02/21/17 10:33 97 21 02/21/17 09:10 98.6 55 18 103/65 (78) 97 115/68 (84) 116/74 (88) I/O 02/21/17 02/21/17 02/21/17 02/22/17 02/22/17 02/22/17 07:00 15:00 23:00 07:00 15:00 23:00 Intake Total 300 ml 800 ml 750 ml 900 ml Output Total 800 ml Balance 300 ml 800 ml -50 ml 900 ml Intake Oral 300 ml 750 ml 900 ml IV Total 800 ml Output Urine Total 800 ml # Voids 1 Result Diagram: 02/21/17 0709 02/21/17 0709 Imaging Last Impressions Carotid Artery Ultrasound 02/21/17 0000 Signed Impressions: Service Date/Time: Tuesday, February 21, 2017 08:40 - CONCLUSION: There is mild plaquing at both carotid bifurcations. No focal high grade or hemodynamically significant stenosis. Prabhjot Villanueva MD Head CT 02/20/17 1500 Signed Impressions: Service Date/Time: February 15:52 - CONCLUSION: No acute intracranial abnormality is identified. Lenny Wolff MD Chest X-Ray 02/20/17 1500 Signed Impressions: Service Date/Time: February 15:26 - CONCLUSION: No acute cardiopulmonary abnormality is identified. Lenny Wolff MD Objective Remarks GENERAL: Well-developed well-nourished. In no acute distress. SKIN: Warm and dry. No lesions noted. HEENT: Normocephalic. Pupils equal and round. Mucous membranes pink and moist. CARDIOVASCULAR: Regular rate and rhythm. No murmur appreciated. RESPIRATORY: No accessory muscle use. Clear to auscultation. Breath sounds equal bilaterally. No wheezing. GASTROINTESTINAL: Abdomen soft, non-tender, nondistended. Bowel sounds x4. MUSCULOSKELETAL: No obvious deformities. No clubbing or cyanosis. No edema. NEUROLOGICAL: Awake and alert. No focal neurological deficits. Moves upper and lower extremities spontaneously. Normal speech. PSYCHIATRIC: Appropriate mood and affect; insight and judgment normal. A/P Problem List: (1) Syncope and collapse ICD Code: R55 - Syncope and collapse Status: Acute (2) Hypokalemia ICD Code: E87.6 - Hypokalemia Status: Acute (3) HTN (hypertension) ICD Code: I10 - Essential (primary) hypertension Status: Chronic (4) PTSD (post-traumatic stress disorder) ICD Code: F43.10 - Post-traumatic stress disorder, unspecified Status: Chronic (5) Bipolar disorder, unspecified ICD Code: F31.9 - Bipolar disorder, unspecified Status: Chronic (6) Tobacco abuse ICD Code: Z72.0 - Tobacco use Status: Chronic Assessment and Plan 47 year old female with history of HTN, bipolar disorder, PTSD, asthma and herpes simplex 1 & 2 who presented after she had a syncopal episode Syncopal episode- differential includes medication effect (Abilify/atenolol), dehydration (HCTZ), or seizure Reviewed: CT head reveals no acute intracranial abnormality. Blood pressure is soft and heart rate is in the 50s. Not orthostatic. Carotid ultrasound with no significant stenosis. Hypokalemia. EKG with NSR. EEG normal. -Held HCTZ and given IVF -PT consulted, no restrictions -doubt seizures as normal and patient is on Lamotrigine for bipolar -Improved Hypokalemia Secondary to HCTZ. Magnesium within normal limits. Given oral replacement. -Potassium improved to 3.4 and given additional replacement Hypertension BP was soft upon arrival, HCTZ was held and blood pressure is improving -Stop HCTZ with dehydration/hypokalemia and start on low-dose amlodipine -Encouraged continued outpatient follow-up Bipolar/PTSD -Continue Lamictal, Vistaril, and trazodone -Recommend discontinuing Abilify as this can contribute to orthostatic hypotension and was only started 3 days ago Asthma Doesn't clinically seem to be in acute exacerbation at this time, but with occasional wheezing on exam. -Continue albuterol MDI -Started Symbicort and recommend tobacco cessation and follow-up with PCP Tobacco abuse Counseled on cessation Nicotine patch Herpes simplex 1&2 continue patient's home acyclovir GERD continue home omeprazole DVT prophylaxis with DEIDRE cartwright and SCDs Discharge Planning Discharge patient to home Condition on discharge: Improved Heart healthy Diet as tolerated Regular activity Rx written: Amlodipine, Symbicort Follow-up with primary care physician Problem Qualifiers (1) HTN (hypertension): Qualified Codes: I15.9 - Secondary hypertension, unspecified (2) Bipolar disorder, unspecified: Qualified Codes: F31.9 - Bipolar disorder, unspecified Vasquez Gamez Feb 22, 2017 09:03
[2017-02-22] MEDS ORDERED: SYMB80AE INH (09:09)
[2017-02-22] MEDS ORDERED: AMLO5 PO (09:09)
[2017-02-22] MEDS: BUDESONIDE-FORMOTEROL 80/4.5 MCG INHALER INH SCH (10:00)
[2017-02-22] MEDS: lamoTRIgine 100 MG TAB PO SCH (10:00)
[2017-02-22] MEDS ORDERED: amLODIPine BESYLATE 5 MG TAB PO SCH (10:00)
[2017-02-22] MEDS: ACYCLOVIR 200 MG CAP PO SCH (10:00)
[2017-02-22] MEDS: PANTOPRAZOLE SOD 20 MG DELAYED RELEASE TAB PO SCH (10:01)
[2017-02-22] MEDS: NICOTINE 14 MG/24 HR PATCH T-DERMAL SCH (10:05)
== END 2017-02-22 11:59 | disposition home or self-care (01) ==
LOC: NEPC 14:32 → NEDA 16:50 → NEPHCDU 18:13
PROVIDERS: ADMIT Hospitalist; ATTEND Hospitalist
DX: R55 Syncope and collapse (principal); E87.6 Hypokalemia; I10 Essential (primary) hypertension; F43.10 Post-traumatic stress disorder, unspecified; F31.9 Bipolar disorder, unspecified; R61 Generalized hyperhidrosis; R11.0 Nausea; J45.909 Unspecified asthma, uncomplicated; Z79.899 Other long term (current) drug therapy; F17.210 Nicotine dependence, cigarettes, uncomplicated; E86.0 Dehydration; K21.9 Gastro-esophageal reflux disease without esophagitis; B00.9 Herpesviral infection, unspecified; R94.31 Abnormal electrocardiogram [ECG] [EKG]
CPT/HCPCS: 70450; 71010; 80053; 80307; 81001; 82550; 83735; 83880; 84484; 84703; 85025; 85610; 85730; 93005; 93880; 94664; 95819; 96361; 96365; 96375; 97161; 99285; G0378; G8987; G8988; G8989; J2405; J3480; J7030; J7613; Q0163